=== PATIENT | female | born 1970 | race Hispanic/Latino ===

== ENCOUNTER 2016-12-05 12:14 | Emergency (ER) | payer SELFPAY ==
[~2016-12-05] VITALS: Ht 154.9 cm; Wt 72.6 kg
[2016-12-05] MEDS ORDERED: LEVOTHYROXINE75 MCG PO (15:36)
[2016-12-05] MEDS ORDERED: FLAGYL500 MG PO (15:36)
== END 2016-12-05 13:36 | disposition left against medical advice (07) ==
LOC: ED 12:14
DX: Z53.21 Procedure and treatment not carried out due to patient leaving prior to being seen by health care provider (principal)

== ENCOUNTER 2016-12-05 14:23 | Emergency (ER) | payer SELFPAY ==
[~2016-12-05] VITALS: Ht 160 cm; Wt 68.0 kg
[2016-12-05] MEDS ORDERED: LEVOTHYROXINE75 MCG PO (15:36)
[2016-12-05] MEDS ORDERED: FLAGYL500 MG PO (15:36)
== END 2016-12-05 18:47 | disposition home or self-care (01) ==
LOC: ED 14:23
DX: R10.31 Right lower quadrant pain (principal); R10.32 Left lower quadrant pain; F17.200 Nicotine dependence, unspecified, uncomplicated; Z90.710 Acquired absence of both cervix and uterus; Z79.899 Other long term (current) drug therapy
CPT/HCPCS: 80053; 81001; 82150; 83690; 85025; 96360; 99283; J7030

== ENCOUNTER 2017-04-01 16:11 | Emergency (ER) | payer SELFPAY ==
[~2017-04-01] VITALS: Ht 160 cm; Wt 68.0 kg
[~2017-04-01 16:11] MED LIST: FLAGYL500 MG PO; LEVOTHYROXINE75 MCG PO
== END 2017-04-01 16:22 | disposition home or self-care (01) ==
LOC: ED 16:11
DX: R05 Cough (principal)

== ENCOUNTER 2017-04-17 08:00 | Day surgery (SDC) | payer SELFPAY ==
[~2017-04-17] VITALS: Ht 160 cm; Wt 79.4 kg
--- NOTE | 2017-04-17 11:30 | NUR ---
04/17/17 1130 Renee Lawrence 1125 PATIENT ARRIVES TO PACU SLEEPING, AWAKENS TO VERBAL STIMULI, C/O "A LITTLE BIT OF PAIN," THEN BACK TO SLEEP. RESP EVEN, AND UNLABORED, SNORING. MASK AT 6 LITERS.
--- NOTE | 2017-04-17 12:25 | NUR ---
LE 1215: PT ARRIVED TO ROOM FROM PACU VIA STRETCHER WITH RN. AND NEPHEW IN ROOM TO TRANSLATE. VITALS AND ASSESSMENT COMPLETE. WATER AND CRACKERS GIVEN. PT RATES PAIN 4/10, STATES IT IS MUCH BETTER. NO FURTHER NEEDS AT THIS TIME. FAMILY AT BEDSIDE, CALL LIGHT IN REACH.
[2017-04-17] MEDS ORDERED: NORCO 5-325 TA1 EACH PO (12:56)
--- NOTE | 2017-04-17 15:14 | NUR ---
1250: PATIENT STATES SHE IS HUNGRY. SOUP AND SANDWICH ORDERED FOR PATIENT. ICE PACK ON SURGICAL SITE. 1320: PATIENT ASSISTED OOB AND TO BATHROOM. GAIT STEADY. VOID WITHOUT DIFFICULTY. GAIT STEADY BACK TO ROOM. C/O PAIN 10/30. 1330: PATIENT TOLERATED HALF OF SANDWICH. PATIENT MEDICATED FOR PAIN WITH 2 TABS OF NORCO. FAMILY AT BEDSIDE. CALL LIGHT WITHIN REACH. 1400: PATIENT STATES READY TO GO HOME. IV DC'D WNL. TIP INTACT. DRESSING APPLIED. DISCHARGE INSTRUCTIONS GIVEN TO PATIENT AND FAMILY. PATIENT GETTING DRESSED. 1415: PATIENT DISCHARGED TO HOME WITH FAMILY VIA WHEELCHAIR.
--- NOTE | 2017-04-23 10:17 | OR ---
[facility] [address], [place] [address] Signed DATE OF OPERATION: 04/17/2017 SURGEON: Argelia Spencer MD PREOPERATIVE DIAGNOSIS: Mammographic lesions of right breast with increased microcalcifications and epithelial atypia and hyperplasia. POSTOPERATIVE DIAGNOSIS: Mammographic lesions of right breast with increased microcalcifications and epithelial atypia and hyperplasia. PROCEDURE: Right breast needle localization excisional biopsy. ESTIMATED BLOOD LOSS: None. INDICATIONS: Vanna is a 47-year-old woman who went for her routine mammograms on February 19, 2017. She had an increase in the number and conspicuity of clustered microcalcifications in the upper and outer quadrant in the posterior 3rd of the right breast. Compression views confirmed the pleomorphic calcifications. Her stereotactic breast biopsy revealed epithelial atypia with hyperplasia in association with the microcalcifications. No obvious cancer could be identified per our local pathologist or [facility] and [facility]. Her primary care provider asked to see me with respect to the above. Her nephew came to help interpret. We had a long detailed discussion regarding her current findings. I gave her a [employer] brochure in the office, so we could look at the pictures together. We talked about her various options. In the end, she wanted a needle-localization excisional biopsy to obtain additional tissue for a better pathologic review and more definitive diagnosis. I was able to show the pictures in her brochure and explained to her the nature of the needle localization requiring the excisional biopsy. She understands the nature of the surgery along with its risks including, but not limited to bleeding, infection, scarring, change in contour of the skin as well as possible need for additional surgeries and/or treatments. She and her family had expressed understanding and wished to proceed. PROCEDURE NOTE: Vanna had initially gone over to our radiology department. She had 2 wires placed in the right breast in the upper crease of the breast near the edge of the pectoralis major Electronically Signed By: ARGELIA SPENCER MD 04/23/17 1017 PATIENT NAME: VANNA LOCK OPERATIVE REPORT DATE OF : 68 PHYSICIAN: ARGELIA SPENCER MD REPORT #: [id number] REPORT IS CONFIDENTIAL AND NOT TO BE RELEASED WITHOUT AUTHORIZATION [facility] [address] [place] [id number] Signed muscle. She was then brought back over to the surgery department. I met with Vanna and her family once again. We had a long protracted discussion and basically went back to all the same discussion again. After this, she was taken in the operating room and placed in the supine position under general LMA anesthesia. She was given preoperative antibiotics along with subcutaneous heparin. SCDs were utilized. She was then prepped and draped in the usual sterile fashion. After this, I used a curvilinear elliptical incision around the 2 wires to follow the curve of the breast. We followed this down as it traveled anteriorly past the lateral edge of the pectoralis major muscle all the way down towards the chest wall at the lateral aspect of the right breast. All tissue was taken en bloc. The specimen was then marked appropriately with silk sutures and passed off the field. The radiologist did call back to confirm that the lesion was contained in our biopsy specimen. After this, the wound was irrigated and suctioned out until clear. All hemostasis had been easily achieved with the cautery. We used several 3-0 Monocryl sutures to help bring some of the deeper adipose and breast tissue together and then the dermis was reapproximated with interrupted 3-0 subcuticular Monocryl sutures. The skin edges were reapproximated with a running 6-0 fast absorbing plain gut suture. Dry gauze and tape were then applied. Vanna was then awakened from her anesthesia, extubated in the OR, and taken to recovery room in stable condition. Argelia Spencer MD ALB/MODL /[id number] cc: MD Velma Cadet MD Electronically Signed By: ARGELIA SPENCER MD 04/23/17 1017 PATIENT NAME: VANNA LOCK OPERATIVE REPORT DATE OF : 68 PHYSICIAN: ARGELIA SPENCER MD REPORT #: [id number] REPORT IS CONFIDENTIAL AND NOT TO BE RELEASED WITHOUT AUTHORIZATION
== END 2017-04-17 14:15 | disposition home or self-care (01) ==
LOC: DS 08:00 → EDSTATUS 09:00 → MAM 09:00 → DS 09:00
PROVIDERS: Colon & Rectal Surgery
PROC: 0HBT0ZX Excision of Right Breast, Open Approach, Diagnostic (ICD-10-PCS; principal; 2017-04-17 10:00)
DX: N60.31 Fibrosclerosis of right breast (principal); N64.89 Other specified disorders of breast
CPT/HCPCS: 00404; 19283; 76098; J0690; J1100; J1170; J1644; J1885; J2250; J2405; J2704; J3010; J7120